=== PATIENT | male | born 1980 | race African-American/Black ===

== ENCOUNTER 2017-07-20 21:40 | Emergency (ER) | payer SELFPAY ==
[2017-07-20] MEDS ORDERED: Ketorolac Tromethamine 30 MG/ML VIAL ONE (22:11)
--- NOTE | 2017-07-20 22:33 | RAD ---
LEFT HAND FOURTH DIGIT THREE VIEWS 07/20/17 HISTORY: Pain. Trauma. FINDINGS: Nondisplaced distal phalanx fracture. Associated soft tissue swelling. IMPRESSION: Fracture as above. POS: [facility]
== END 2017-07-20 23:25 | disposition home or self-care (01) ==
LOC: ERS 21:40
DX: S62.665A Nondisplaced fracture of distal phalanx of left ring finger, initial encounter for closed fracture (principal); W31.89XA Contact with other specified machinery, initial encounter; Y99.0 Civilian activity done for income or pay
CPT/HCPCS: 11740; 96372; J1885

== ENCOUNTER 2018-08-26 09:59 | Emergency (ER) | payer SELFPAY ==
[2018-08-26 10:52] LABS: Bilirubin Negative (Negative); Blood, Urine Negative (Negative); Glucose, Urine (Dipstick) Negative (Negative); Leukocyte Negative (Negative); Nitrite Negative (Negative); Protein, Urine (Dipstick) Negative (Neg-Trace); Urobilinogen 0.2 mg/dL (0.2-1.0)
[2018-08-26 10:58] LABS: Clarity CLEAR (Clear)
[2018-08-26 11:13] LABS: ALT (SGPT) 14 U/L (8-55); AST (SGOT) 14 U/L (5-34); Albumin 3.8 g/dL (3.5-5.0); Alkaline Phosphatase 66 U/L (40-150); Anion Gap 10 mmol/L (10-20); BUN (Urea Nitrogen) 13 mg/dL (8.9-20.6); Bilirubin, Total 0.4 mg/dL (0.2-1.2); Calc. Creatinine Clearance 0 mL/min (70-130); Calcium 9.2 mg/dL (7.8-10.44); Carbon Dioxide 31 mmol/L (22-29); Chloride 104 mmol/L (98-107); Estimated GFR-MDRD 64; Globulin 2.8 g/dL (2.4-3.5); Glucose 100 mg/dL (70-105); Lipase 53 U/L (8-78); Potassium 3.9 mmol/L (3.5-5.1); Protein, Total 6.6 g/dL (6.0-8.3); Sodium 141 mmol/L (136-145)
[2018-08-26 11:18] LABS: Hemoglobin 13.8 g/dL (14.0-18.0); Mean Corpuscular HGB CONC 31.6 g/dL (32.0-36.0); Mean Corpuscular Hemoglobin 28.9 pg (27.0-31.0); Mean Corpuscular Volume 91.7 fL (78.0-98.0); Mean Platelet Volume 7.6 fL (7.4-10.4); Platelet Count 247 thou/uL (130-400); RBC Distribution Width 13.3 % (11.5-14.5); Red Blood Cell (RBC) Count 4.78 mill/uL (4.70-6.10); White Blood Cell (WBC) Count 3.4 thou/uL (4.8-10.8)
[2018-08-26] MEDS ORDERED: Mag-Al 1200 mg/1200 mg/30 ML UDCUP ONE (11:32)
[2018-08-26] MEDS ORDERED: Ondansetron ODT 4 MG TAB ONE (11:32)
[2018-08-26] MEDS ORDERED: Lidocaine Viscous Sol 2% 15 ml UD Cup ONE (11:32)
[2018-08-26 11:47] LABS: Eosinophils 3 % (0-10); Hypochromia SLIGHT = 6-15 cells (100X) (0-5/hpf); Lymphocytes 23 % (21-51); MDiff Complete? YES; Monocytes 17 % (0-10); Neutrophil 54 % (42-75); Ovalocytes SLIGHT = 2-5 cells (100X) (0-1/hpf); Platelet Morphology Comment Appears Adequate; Polychromasia SLIGHT = 2-3 cells (100X) (0-2/hpf); Reactive Lymphocytes 3 % (0-10)
== END 2018-08-26 11:42 | disposition home or self-care (01) ==
LOC: ERS 09:59
DX: R11.2 Nausea with vomiting, unspecified (principal); R19.7 Diarrhea, unspecified
CPT/HCPCS: 36415; 80053; 81003; 83690; 85025; 99284; Q0162

== ENCOUNTER 2018-09-02 08:23 | Emergency (ER) | payer SELFPAY ==
[2018-09-02] MEDS ORDERED: Ibuprofen 800 MG TAB ONE (08:56)
--- NOTE | 2018-09-02 09:11 | RAD ---
RIGHT LITTLE TOE 3 VIEWS: Date: 09/02/18 HISTORY: Pain and swelling to toe, unsure of injury. FINDINGS: There is some subtle deformity along the medial side of the base of the distal phalanx. I am not cert ain whether this is related to some osteophytic change or possibly a subtle fracture. Clinical correl ation as to whether patient's pain is related to this area. I do not see any bony destructive change that would definitely suggest and osteomyelitis. IMPRESSION: Slight irregularity to the cortex along the medial aspect of the base of the distal phalanx. I believ e this is more related to osteophytic change than acute trauma or an infectious process. POS: [facility]
== END 2018-09-02 09:02 | disposition home or self-care (01) ==
LOC: ERS 08:23
DX: M79.674 Pain in right toe(s) (principal)

== ENCOUNTER 2018-11-08 06:50 | Emergency (ER) | payer SELFPAY | END 2018-11-08 07:40 | disposition home or self-care (01) | LOC: ERS 06:50 | DX: J20.9 Acute bronchitis, unspecified (principal); R11.2 Nausea with vomiting, unspecified | CPT/HCPCS: 99283 ==

== ENCOUNTER 2018-11-20 19:11 | Emergency (ER) | payer SELFPAY | END 2018-11-20 19:57 | disposition home or self-care (01) | LOC: ERS 19:11 | DX: M75.22 Bicipital tendinitis, left shoulder (principal); X50.9XXA Other and unspecified overexertion or strenuous movements or postures, initial encounter; Y99.0 Civilian activity done for income or pay | CPT/HCPCS: 99283 ==

== ENCOUNTER 2019-07-22 06:48 | Emergency (ER) | payer SELFPAY ==
[2019-07-22] MEDS ORDERED: Ketorolac Tromethamine 60 MG/2 ML VIAL ONE (07:49)
[2019-07-22] MEDS ORDERED: Acetaminophen 500 MG TAB ONE (07:49)
== END 2019-07-22 07:10 | disposition home or self-care (01) ==
LOC: ERS 06:48
DX: K08.89 Other specified disorders of teeth and supporting structures (principal); F17.210 Nicotine dependence, cigarettes, uncomplicated
CPT/HCPCS: 96372; 99282; J1885

== ENCOUNTER 2025-02-17 17:25 | Inpatient (IN) | payer OTHER, SELFPAY ==
[2025-02-17 18:45] LABS: #Basophils 0.03 10x3/uL (0.0-0.2); #Eosinophils 0.07 10x3/uL (0.0-0.7); #Monocytes 0.63 10x3/uL (0.11-0.59); #Neutrophils 3.10 10x3/uL (1.40-6.50); %Basophils 0.6 % (0.0-1.0); %Eosinophils 1.5 % (0.0-10.0); %Lymphocytes 18.8 % (21.0-51.0); %Monocytes 13.3 % (0.0-10.0); %Neutrophils 65.4 % (42.0-75.0); Hematocrit 44.9 % (42.0-52.0); Hemoglobin 14.9 g/dL (14.0-18.0); Mean Corpuscular Hemoglobin 28.2 pg (27.0-31.0); Mean Corpuscular Volume 85.0 fL (78.0-98.0); Platelet Count 295 10x3/uL (130-400); Red Blood Cell (RBC) Count 5.28 mill/uL (4.70-6.10); White Blood Cell (WBC) Count 4.74 10x3/uL (4.8-10.8)
[2025-02-17 19:19] LABS: ALT (SGPT) 9 U/L (Less than 45); AST (SGOT) 16 U/L (11-34); Albumin 3.8 g/dL (3.1-4.5); Alkaline Phosphatase 114 U/L (40-110); Anion Gap 15 mmol/L (10-20); BUN (Urea Nitrogen) 6 mg/dL (8.9-20.6); Bilirubin, Total 0.5 mg/dL (0.3-1.2); Calc. Creatinine Clearance 0 mL/min (70-130); Calcium 9.4 mg/dL (7.8-10.44); Carbon Dioxide 28 mmol/L (22-29); Chloride 95 mmol/L (98-107); Globulin 3.0 g/dL (2.4-3.5); Glucose 456 mg/dL (70-105); Potassium 3.7 mmol/L (3.5-5.1); Sodium 134 mmol/L (136-145)
[2025-02-17 19:43] LABS: INR-International Normal Ratio 1.0; PTT 24.0 sec (22.9-36.1); Prothrombin Time 13.3 sec (12.0-14.7)
[2025-02-17 23:09] VITALS: BMI 28.7
[2025-02-18] MEDS ORDERED: Ondansetron PF 4 MG/2 ML Vial IVP PRN (01:04)
[2025-02-18] MEDS ORDERED: Acetaminophen 325 MG TAB PO PRN (01:04)
[2025-02-18] MEDS ORDERED: hydrALAZINE 20 MG/ML VIAL SLOW IVP PRN (01:05)
[2025-02-18] MEDS ORDERED: Dextrose 50% Abboject 50 ML SYRINGE SLOW IVP PRN (01:08)
[2025-02-18] MEDS ORDERED: Glucagon 1 MG/ML KIT IM PRN (01:08)
[2025-02-18 05:23] LABS: #Basophils Less than 0.03 10x3/uL (0.0-0.2); #Eosinophils 0.08 10x3/uL (0.0-0.7); #Monocytes 0.55 10x3/uL (0.11-0.59); #Neutrophils 2.42 10x3/uL (1.40-6.50); %Basophils 0.5 % (0.0-1.0); %Eosinophils 1.9 % (0.0-10.0); %Lymphocytes 26.5 % (21.0-51.0); %Monocytes 13.1 % (0.0-10.0); %Neutrophils 57.8 % (42.0-75.0); Hematocrit 39.8 % (42.0-52.0); Hemoglobin 12.8 g/dL (14.0-18.0); Mean Corpuscular Hemoglobin 28.0 pg (27.0-31.0); Mean Corpuscular Volume 87.1 fL (78.0-98.0); Platelet Count 279 10x3/uL (130-400); Red Blood Cell (RBC) Count 4.57 mill/uL (4.70-6.10); White Blood Cell (WBC) Count 4.19 10x3/uL (4.8-10.8)
[2025-02-18 06:11] LABS: Anion Gap 13 mmol/L (10-20); BUN (Urea Nitrogen) 9 mg/dL (8.9-20.6); Calc. Creatinine Clearance 105 mL/min (70-130); Calcium 8.5 mg/dL (7.8-10.44); Carbon Dioxide 28 mmol/L (22-29); Cardiac Risk 6.6 (Less than 4.5); Chloride 100 mmol/L (98-107); Cholesterol 131 mg/dl (< 200 Desired); Glucose 525 mg/dL (70-105); HDL Cholesterol 20 mg/dL (>60 Neg Risk); Potassium 4.2 mmol/L (3.5-5.1); Sodium 137 mmol/L (136-145); Triglycerides 431 mg/dL (Less than 150)
[2025-02-18] MEDS: Aspirin 81 mg Enteric Coated Tablet PO SCH (08:05)
[2025-02-18] MEDS: Insulin Glargine 30 UNITS/0.3 ML VIAL SC SCH ×2 (11:35→20:09)
[2025-02-18 16:02] VITALS: BMI 28.7
[2025-02-18] MEDS: metFORMIN 500 MG TAB PO SCH (16:49)
[2025-02-18 19:28] LABS: Glucose 495 mg/dL (70-105)
[2025-02-19] MEDS: Losartan 25 MG TAB PO SCH (08:50)
[2025-02-19 09:00] LABS: #Basophils 0.03 10x3/uL (0.0-0.2); #Eosinophils 0.06 10x3/uL (0.0-0.7); #Monocytes 0.53 10x3/uL (0.11-0.59); #Neutrophils 2.07 10x3/uL (1.40-6.50); %Basophils 0.8 % (0.0-1.0); %Eosinophils 1.6 % (0.0-10.0); %Lymphocytes 27.7 % (21.0-51.0); %Monocytes 14.2 % (0.0-10.0); %Neutrophils 55.7 % (42.0-75.0); Hematocrit 40.3 % (42.0-52.0); Hemoglobin 12.9 g/dL (14.0-18.0); Mean Corpuscular Hemoglobin 28.3 pg (27.0-31.0); Mean Corpuscular Volume 88.4 fL (78.0-98.0); Platelet Count 255 10x3/uL (130-400); Red Blood Cell (RBC) Count 4.56 mill/uL (4.70-6.10); White Blood Cell (WBC) Count 3.72 10x3/uL (4.8-10.8)
[2025-02-19 09:25] LABS: Anion Gap 9 mmol/L (10-20); BUN (Urea Nitrogen) 8 mg/dL (8.9-20.6); Calc. Creatinine Clearance 113 mL/min (70-130); Calcium 8.6 mg/dL (7.8-10.44); Carbon Dioxide 32 mmol/L (22-29); Chloride 104 mmol/L (98-107); Glucose 167 mg/dL (70-105); Potassium 3.6 mmol/L (3.5-5.1); Sodium 141 mmol/L (136-145)
[2025-02-19 13:42] LABS: Magnesium 1.8 mg/dL (1.6-2.6)
[2025-02-19 14:57] VITALS: BP 140/84; TEMP 98.2
[2025-02-19] MEDS: Magnesium 2 GM/50 ML(in water) 2 GM in Premix 1 BAG IVPB SCH (14:57)
== END 2025-02-19 16:59 | disposition home or self-care (01) | DRG 638 ==
LOC: ERS 17:25 → 2NO 21:42 → OBSVTOIN 02-18 15:45
PROVIDERS: ADMIT Internal Medicine; ATTEND Family Medicine
DX: E11.65 Type 2 diabetes mellitus with hyperglycemia (principal); I47.20 Ventricular tachycardia, unspecified; F17.210 Nicotine dependence, cigarettes, uncomplicated
CPT/HCPCS: 36415; 36416; 70450; 70551; 80048; 80053; 80061; 83036; 83735; 83880; 84484; 85025; 85610; 85730; 93005; 93010; 93306; 93880; 96361; 96374; G0378; J1815; J3475; J7030